=== PATIENT | female | born 1955 ===

== ENCOUNTER 2022-08-14 14:21 | Observation (INO) | payer OTHER ==
[~2022-08-14] VITALS: Ht 162.6 cm; Wt 64.4 kg
[2022-08-14] VITALS (216 sets, daily range): BP systolic 115–121; BP diastolic 49–54; PULSE 89–99; TEMP 97.7–98.6; O2SAT 93–100
--- NOTE | 2022-08-14 15:40 | NUR ---
PT ARRIVED FROM [facility] DUE TO DKA. PT ALERT AND ORIENTED. FINGERSTICK ACCU CHECK [address] CHANCE NOTIFIED OF PT'S ARRIVAL.
[2022-08-14] MEDS ORDERED: LANTUS100 U/ML SQ (16:14)
[2022-08-14] MEDS ORDERED: NOVOLOG 100U100 U/M1 SQ (16:16)
[2022-08-14] MEDS ORDERED: SYNTHROID 0.0.025 MG PO (16:17)
[2022-08-14] MEDS ORDERED: CALCIUM 600MG+D1 TAB PO (16:18)
[2022-08-14] MEDS ORDERED: CRESTOR5 MG PO (16:19)
[2022-08-14] MEDS ORDERED: GLUCAGEN HYPOKIT1 MG IJ (16:20)
[2022-08-14] MEDS ORDERED: ALLEGRA 180MG180 MG PO (16:20)
[2022-08-14] MEDS ORDERED: PRINIVIL10 MG PO (16:21)
[2022-08-14 16:38] LABS: CALCIUM 8.8 mg/dL (8.4-10.2); CREATININE, serum 1.31 mg/dL (0.57-1.11); POTASSIUM 5.4 mmol/L (3.5-4.5)
[2022-08-14 20:34] LABS: CALCIUM 8.2 mg/dL (8.4-10.2); CREATININE, serum 1.2 mg/dL (0.57-1.11); POTASSIUM 4.4 mmol/L (3.5-4.5)
[2022-08-14 22:41] LABS: CALCIUM 8.2 mg/dL (8.4-10.2); CREATININE, serum 1.05 mg/dL (0.57-1.11); POTASSIUM 3.9 mmol/L (3.5-4.5)
[2022-08-15] VITALS (8 sets, daily range): BP systolic 114–135; BP diastolic 56–69; PULSE 78–86; TEMP 97.8–98.6; O2SAT 96–98
[2022-08-15 00:31] LABS: CALCIUM 8.5 mg/dL (8.4-10.2); CREATININE, serum 0.98 mg/dL (0.57-1.11)
--- NOTE | 2022-08-15 03:45 | NUR ---
PT CALLED AND STATED "I FEEL LIKE IM JUST SWEATY". PT BGL 30 ON CHECK. PT WAS GIVEN 15 GM TABS BY MOUTH DIRECTED PER HYPOGLYCEMIC PROTOCOL AND GIVEN LUNCH BOX.
[2022-08-15 06:16] LABS: BASO % 0.3 % (0.0-2.0); EOS % 0.6 % (0.0-4.0); GRAN # 5.1 K/mm3 (1.4-6.5); GRAN % 78.4 % (42.2-75.2); HEMOGLOBIN 10.5 g/dl (12.5-16.0); LYMPH # 0.7 K/mm3 (1.2-3.4); LYMPH % 11.3 % (20.0-51.0); MEAN CELL VOLUME 85 fl (80.0-100.0); MEAN CORPUSCULAR HEMOGLOBIN 29 pg (27-31); MEAN CORPUSCULAR HGB CONC 34 g/dl (33.0-37.0); MEAN PLATELET VOLUME 9.1 fl (7.4-10.4); MONO # 0.6 K/mm3 (0.1-0.6); MONO % 8.8 % (1.7-9.3); PLATELET COUNT 208 K/mm3 (130-400); RED BLOOD COUNT 3.68 M/mm3 (4.10-5.30); REDCELL DISTRIBUTION WIDTH-CV 13.9 % (11.5-14.5)
[2022-08-15 06:23] LABS: HEMATOCRIT 31.1 % (37.0-47.0)
[2022-08-15 06:39] LABS: ALBUMIN 2.9 gm/dL (3.4-4.8); CALCIUM 8.5 mg/dL (8.4-10.2); CREATININE, serum 0.81 mg/dL (0.57-1.11); MAGNESIUM 1.8 mg/dL (1.6-2.6); POTASSIUM 3.7 mmol/L (3.5-4.5)
[2022-08-15] MEDS ORDERED: SYNTHROID0.088 MG/T PO (09:27)
[2022-08-15] MEDS ORDERED: ZOFRAN 4MG T4 MG/TAB PO (10:42)
--- NOTE | 2022-08-15 13:10 | NUR ---
PT DISCHARGED TO HOME AT THIS TIME. DISCHARGE EDUCATION GIVEN TO PT AND HER . ALL QUESTIONS ANSWERED APPROPRIATELY.
--- NOTE | 2022-08-15 13:23 | NUR ---
Initial visit: Pt was resting and content. Pt was looking forward to getting out today. Pt has no needs right now. [employer] will follow up as needed.
== END 2022-08-15 13:10 | disposition home or self-care (01) ==
LOC: IMCU 14:21 → ICU 15:39
PROVIDERS: ADMIT Internal Medicine
DX: E10.10 Type 1 diabetes mellitus with ketoacidosis without coma (principal); N17.9 Acute kidney failure, unspecified; E87.1 Hypo-osmolality and hyponatremia; I10 Essential (primary) hypertension; E03.9 Hypothyroidism, unspecified; E78.5 Hyperlipidemia, unspecified; Z79.899 Other long term (current) drug therapy; Z79.890 Hormone replacement therapy
CPT/HCPCS: G0378; G0379; J1815; J3475; J7042